=== PATIENT | male | born 1990 | race Caucasian/White ===

== ENCOUNTER 2021-02-27 19:07 | Emergency (ER) | payer OTHER ==
[2021-02-27 20:33] LABS: HEMOGLOBIN 15.1 gm/dl (14.0-17.5); RED BLOOD COUNT 4.71 M/UL (4.20-5.50); WHITE BLOOD COUNT 4.3 K/UL (4.5-11.0)
[2021-02-27 20:55] LABS: BUN/CREATININE RATIO 11 (0-10)
[2021-03-01 13:12] LABS: HBSAG SCREEN Negative (Negative); HEP A AB, IGM Negative (Negative); HEP B CORE AB, IGM Negative (Negative); HEP C VIRUS AB <0.1 (0.0-0.9)
== END 2021-02-28 00:50 | disposition short-term general hospital (02) ==
LOC: ER1 19:07
PROVIDERS: Emergency Medicine
DX: R10.9 Unspecified abdominal pain (principal); R11.2 Nausea with vomiting, unspecified; R19.7 Diarrhea, unspecified; Z20.822 Contact with and (suspected) exposure to COVID-19
CPT/HCPCS: 71250; 80053; 80074; 81001; 82140; 82962; 83690; 83735; 84100; 84439; 84443; 85025; 96365; 96375; 96376; 99285; J1170; J2270; J2550; J7042; U0002

== ENCOUNTER 2021-09-03 03:50 | Emergency (ER) | payer OTHER ==
[2021-09-03 05:33] LABS: HEMOGLOBIN 14.1 gm/dl (14.0-17.5); RED BLOOD COUNT 4.4 M/UL (4.20-5.50); WHITE BLOOD COUNT 3.5 K/UL (4.5-11.0)
[2021-09-03 06:05] LABS: BUN/CREATININE RATIO 20 (0-10)
[2021-09-03] MEDS ORDERED: CARAFATE1 GM PO (08:28)
[2021-09-03] MEDS ORDERED: ONDANSETRON ODT4 MG SL (08:28)
[2021-09-03] MEDS ORDERED: COLACE 100MG C100 MG PO (08:28)
== END 2021-09-03 08:40 | disposition home or self-care (01) ==
LOC: ER1 03:50
DX: K76.0 Fatty (change of) liver, not elsewhere classified (principal); K59.00 Constipation, unspecified; K21.9 Gastro-esophageal reflux disease without esophagitis; Z88.5 Allergy status to narcotic agent; Z90.49 Acquired absence of other specified parts of digestive tract; Z79.899 Other long term (current) drug therapy
CPT/HCPCS: 80053; 81001; 82150; 82550; 82553; 83690; 83874; 84484; 85025; 87086; 96374; 99284; J2405; Q9967